=== PATIENT | male | born 1995 | race Caucasian/White ===

== ENCOUNTER 2020-10-11 17:37 | Emergency (ER) | payer OTHER, BC, SELFPAY ==
--- NOTE | ~2020-10-11 | XR_ITS ---
[id number] 10/11/2020 18:27 Indication: Neck pain. Procedure: 3 views cervical spine Comparison: No prior studies for comparison. Findings: No fracture, subluxation or dislocation. No prevertebral soft tissue abnormality. Odontoid process within normal limits. Lung apices are unremarkable. Impression: 1: No significant abnormality of the cervical spine. Reviewed, dictated and finalized at location A. Impression: 1: No significant abnormality of the cervical spine.
--- NOTE | ~2020-10-11 | XR_ITS ---
[[id number] ] INDICATION: Right rib pain TECHNIQUE: Frontal projection of the upper right ribs, frontal projection of the lower right ribs, ob lique projection of all the right ribs, frontal inspiratory chest x-ray for interpretation. FINDINGS: There are no displaced rib fractures identified. There are no soft tissue abnormality see n. The lungs are clear. IMPRESSION: 1:No displaced rib fractures. Reviewed, dictated and finalized at location A.
--- NOTE | ~2020-10-11 | XR_ITS ---
XR shoulder RT min 2V 10/11/2020 18:27 Indication: Right shoulder pain Procedure: 4 views right shoulder Comparison: No prior studies for comparison Findings: No fracture, subluxation or dislocation. No significant soft tissue abnormality. No foreign bodies. Right lung parenchyma is unremarkable. Impression: 1: No acute bone or joint abnormality. Reviewed, dictated and finalized at location A. Impression: 1: No acute bone or joint abnormality.
--- NOTE | 2020-10-11 17:46 | ED.FALL ---
HPI - Fall General Chief Complaint: Fall Stated Complaint: R shoulder,(both) knees Time Seen by Provider: 10/11/20 17:56 Source: patient and family Mode of arrival: ambulatory Limitations: no limitations and clinical condition History of Present Illness HPI Narrative: Patient is brought in by family members. He has a history of a chromosomal defect, and is developmentally delayed. He had been playing basketball in the yard, and evidently lost his footing and ran into the family van. This actually caused a dent in the van, and broke a window. He is brought in by his family who care for him, with concern he hurt his shoulder. He appears mildly uncomfortable in the right shoulder since the fall about 30 minutes ago. Pain is thought to be mild to moderate, sharp, ongoing. He does not communicate this well to the mother, or me though. He was given tylenol by his mother earlier, and this probably has helped him to feel better. MD complaint: fall Onset (ago): minute(s) Fall from: standing Fall witnessed: no Place fall occurred: home Loss of consciousness: none Prolonged down time: no Symptoms prior to fall: other (unclear, probably a simple fall ) Context: tripped/slipped Location of injury: other (right shoulder) Severity: mild Quality: sharp Associated symptoms (after fall): denies Related Data Home Medications Medication Instructions Recorded Confirmed Dialyvite Vitamin D See Rx Instructions .ROUTE .COMPLEX 10/11/20 10/11/20 loratadine [Claritin] 10 mg PO DAILY 10/11/20 10/11/20 Allergies Allergy/AdvReac Type Severity Reaction Status Date / Time No Known Allergies Allergy Verified 10/11/20 18:04 Review of Systems Review of Systems: All systems reviewed & are unremarkable except as noted in HPI and below (CHAR) Constitutional: Constitutional: Reports no additional constitutional complaints Eyes: Eyes: Reports no additional eye complaints ENT: Reports system reviewed and no additional complaints, except as documented Cardiovascular: Cardiovascular: Reports no additional cardiovascular complaints Respiratory: Comments: Mild discomfort to right chest wall laterally Gastrointestinal: Gastrointestinal: Reports no additional gastrointestinal complaints Genitourinary: Genitourinary: Reports no additional male genitourinary complaints Musculoskeletal: Musculoskeletal: Reports no additional musculoskeletal complaints Integumentary/Breasts: Comments: laceration 1.5cm long left knee Neurologic: Reports system reviewed and no additional complaints, except as documented Psychiatric: Psychiatric: Reports no additional psychiatric complaints Endocrine: Endocrine: Reports no additional endocrine complaints Hematologic/Lymphatic: Hematologic/Lymphatic: Reports no additional hematologic/lymphatic complaints Allergic/Immunologic: Allergic/Immunologic: Reports no additional allergic/immunologic complaints [facility] Past Medical History Medical History (Updated 10/12/20 @ 02:56 by Jorge Fortune MD) 20p partial trisomy syndrome Surgical History Surgical History (Updated 10/12/20 @ 02:44 by Jorge Fortune MD) History of tonsillectomy Family History Family History (Updated 10/12/20 @ 02:45 by Jorge Fortune MD) Father Hypertension Hyperlipemia Social History Social History (Updated 10/12/20 @ 02:45 by Jorge Fortune MD) Substance use: never Living arrangements: with family Gender identity (if verbalized by the patient): Male Exam Const: General: no acute distress and alert Orientation/consciousness: patient oriented x3 HENMT: Head: normal to inspection Ears: external ears normal and TM's normal bilaterally General nose exam: Normal external nose present Mouth: Yes Normal oral and palatal mucosa present Throat: posterior oropharynx normal Eyes: Conjunctivae: conjunctivae normal Neck: Neck: normal visual inspection Chest: Chest palpation & inspection: normal inspection of the chest Other:
[2020-10-11 18:00] VITALS: BP 135/79; PULSE 80; RESP 18; TEMP 37.2; O2SAT 100
--- NOTE | 2020-10-11 18:55 | PC.NURSE ---
Mother unsure of when pts last tetanus shot was, mother reports pt does not do well with shots or needles and for our safety and his is she does not want it administered.
--- NOTE | 2020-10-11 19:17 | PC.NURSE ---
report to aurea contreras
== END 2020-10-11 19:31 | disposition home or self-care (01) ==
PROVIDERS: Emergency Provider Emergency Medicine; PCP Family Medicine
DX: S81.012A Laceration without foreign body, left knee, initial encounter (principal); S43.101A Unspecified dislocation of right acromioclavicular joint, initial encounter; W19.XXXA Unspecified fall, initial encounter
CPT/HCPCS: 71101; 72040; 73030; 99282; 99284